=== PATIENT | female | born 1955 | race African-American/Black ===

== ENCOUNTER 2021-05-24 11:06 | Inpatient (IN) | payer OTHER ==
[~2021-05-24] VITALS: Ht 170.2 cm; Wt 119.9 kg
[2021-05-24 12:45] LABS: HEMATOCRIT. 41.1 % (36.0-48.0); HEMOGLOBIN. 13.6 g/dL (12.0-16.0); MEAN CORPUSCULAR HEMOGLOBIN 28.3 pg (28.0-32.0); MEAN CORPUSCULAR VOLUME 85.6 fL (81.0-99.0); RED CELL DISTRIBUTION WIDTH 14.4 % (11.6-14.6)
[2021-05-24 12:48] LABS: CHLORIDE 93 mEq/L (98-107)
[2021-05-24 12:52] LABS: ETHANOL BLOOD < 10 mg/dL
[2021-05-24 12:55] LABS: LDL CHOLESTEROL 57 mg/dL (5-100)
[2021-05-24 12:56] LABS: INR 1.2; PROTHROMBIN TIME 12.7 sec (9.6-11.0)
[2021-05-24 13:36] LABS: PLATELET ESTIMATE MARKEDLY DECREASED
[2021-05-24 13:37] LABS: PLATELET 37 x1000/uL (130-400)
[2021-05-24] MEDS ORDERED: IOHEXOL-350 100 ML BOTTLE ONE (13:38)
[2021-05-24] MEDS ORDERED: SODIUM CHLORIDE 0.9% 1,000 ML IV ONE ×2 (14:30→15:45)
[2021-05-24 14:32] LABS: BG BASE EXCESS -12.3 mmol/L (-2.0-2.0); BG CARBOXYHEMOGLOBIN 0.5 % (0.5-1.5); BG DEOXYHEMOGLOBIN 2.1 % (0.0-5.0); BG FRACTION INSPIRED OXYGEN 100; BG HCO3 ACT 13.5 mmol/L (22.0-26.0); BG METHEMOGLOBIN 0.5 % (0.0-1.5); BG OXYGEN SATURATION 97.9 % (92.0-98.5); BG OXYHEMOGLOBIN 96.9 % (94.0-97.0); BG PCO2 31.1 mmHg (35.0-45.0); BG PH 7.255 (7.350-7.450); BG PO2 130.7 mmHg (75.0-100.0); BG SAMPLE SITE LEFT BRACHIAL; BG TOTAL HEMOGLOBIN 13.7 g/dL (12.0-18.0); BG VENT MODE MASK - NRB
[2021-05-24 14:54] LABS: PHOSPHORUS 8.3 mg/dL (2.5-4.9)
[2021-05-24] MEDS ORDERED: CEFEPIME HCL 1000MG/VIAL INJ IM ONE (15:45)
[2021-05-24] MEDS ORDERED: VANCOMYCIN 1 G PREMIX 200 ML IV SCH (15:45)
[2021-05-24] MEDS ORDERED: CEFEPIME 1,000 MG in DEXTROSE 5% WATER 50 ML IV SCH (17:00)
[2021-05-24] MEDS ORDERED: LABETALOL HCL 20MG/4ML CARPUJECT IV ONE (17:45)
[2021-05-24] MEDS ORDERED: ONDANSETRON HCL 4MG/2ML INJ IV PRN (18:15)
[2021-05-24] MEDS ORDERED: MORPHINE SULFATE 2 MG/ML CPJ (NOT FOR IM USE) IV PRN (18:15)
[2021-05-24] MEDS ORDERED: DOCUSATE SODIUM 100MG CAPSULE PO PRN (18:15)
[2021-05-24] MEDS ORDERED: HYDROCODONE/ACETAMINOPHEN 5/325MG TABLET PO PRN (18:15)
[2021-05-24] MEDS ORDERED: ACETAMINOPHEN 325MG TABLET PO PRN (18:15)
[2021-05-24] MEDS ORDERED: CLONIDINE 0.1MG TABLET PO PRN (18:15)
[2021-05-24] MEDS ORDERED: HYDRALAZINE 20MG/ML VIAL IV PRN (18:15)
[2021-05-24] MEDS ORDERED: LORAZEPAM 2MG/ML CPJ IV PRN (18:15)
[2021-05-24] MEDS ORDERED: ENOXAPARIN 40MG/0.4ML SYR SUBCUT SCH (18:15)
[2021-05-24] MEDS ORDERED: DIPHENHYDRAMINE 50MG/ML VIAL IV PRN (18:15)
[2021-05-24] MEDS ORDERED: MAGNESIUM/ALUMINUM HYDROXIDE/SIMETHICONE 30ML UDC PO PRN (18:15)
[2021-05-24] MEDS ORDERED: GUAIFENESIN 200MG/10ML SUGAR FREE UDC PO PRN (18:15)
[2021-05-24] MEDS ORDERED: IPRATROPIUM/ALBUTEROL 0.5-3(2.5)MG/3ML NEB HHN PRN (18:15)
[2021-05-24 18:50] LABS: CLARITY URINE TURBID (CLEAR); COLOR URINE DARK YELLOW (YELLOW); KETONES URINE NEGATIVE (NEGATIVE); LEUKOCYTE ESTERASE URINE 1+ (NEGATIVE); NITRITE URINE POSITIVE (NEGATIVE); OCCULT BLOOD URINE 3+ (NEGATIVE); PROTEIN URINE 3+ (NEGATIVE); SPECIFIC GRAVITY URINE 1.032 (1.005-1.030)
[2021-05-24 19:03] LABS: *AMPHETAMINES SCREEN URINE NEGATIVE (NEGATIVE); *BARBITURATES SCREEN URINE NEGATIVE (NEGATIVE); *BENZODIAZEPINES SCREEN URINE NEGATIVE (NEGATIVE); *COCAINE SCREEN URINE NEGATIVE (NEGATIVE)
[2021-05-24 19:05] LABS: CANNABINOID URINE SCREEN NEGATIVE (NEGATIVE); METHADONE URINE SCREEN NEGATIVE (NEGATIVE); OPIATES URINE SCREEN NEGATIVE (NEGATIVE); PHENCYCLIDINE URINE SCREEN NEGATIVE (NEGATIVE)
[2021-05-24] MEDS: SODIUM CHLORIDE 0.9% INJ 3ML FLUSH IVF SCH (22:10)
[2021-05-25] VITALS (47 sets, daily range): BP systolic 53–179; BP diastolic 29–140
[2021-05-25] MEDS: NOREPINEPHRINE 8MG/250ML PMX 250ML IV PRN ×2 (05:07→11:46)
[2021-05-25] MEDS: SODIUM CHLORIDE 0.9% INJ 3ML FLUSH IVF SCH ×3 (06:00→22:00)
[2021-05-25 08:34] LABS: HEMATOCRIT. 41.6 % (36.0-48.0); HEMOGLOBIN. 13.6 g/dL (12.0-16.0); MEAN CORPUSCULAR HEMOGLOBIN 28.3 pg (28.0-32.0); MEAN CORPUSCULAR VOLUME 86.3 fL (81.0-99.0); RED BLOOD CELL COUNT 4.82 mill/uL (4.2-5.4); RED CELL DISTRIBUTION WIDTH 14.9 % (11.6-14.6)
[2021-05-25 08:41] LABS: CHLORIDE 96 mEq/L (98-107)
[2021-05-25] MEDS ORDERED: LORAZEPAM 2MG/ML CPJ IV ONE (09:00)
[2021-05-25 09:17] LABS: BG BASE EXCESS -11.5 mmol/L (-2.0-2.0); BG CARBOXYHEMOGLOBIN 0.6 % (0.5-1.5); BG DEOXYHEMOGLOBIN 3.5 % (0.0-5.0); BG METHEMOGLOBIN 0.3 % (0.0-1.5); BG OXYGEN SATURATION 96.5 % (92.0-98.5); BG OXYHEMOGLOBIN 95.6 % (94.0-97.0); BG PCO2 26.6 mmHg (35.0-45.0); BG PH 7.306 (7.350-7.450); BG PO2 94.7 mmHg (75.0-100.0); BG SAMPLE SITE RIGHT RADIAL; BG TOTAL HEMOGLOBIN 14.6 g/dL (12.0-18.0); BG VENT MODE NASAL CANNULA
[2021-05-25] MEDS ORDERED: SODIUM BICARBONATE 8.4% 1 MEQ/ML 50ML SYR IV SCH (10:00)
[2021-05-25] MEDS ORDERED: ALBUTEROL (0.083%) 2.5MG/3ML NEB HHN ONE (10:00)
[2021-05-25] MEDS ORDERED: MIDAZOLAM 100MG/100ML PMX 100 ML IV PRN (10:00)
[2021-05-25] MEDS ORDERED: PIPERACILLIN/TAZ 3.375G PREMIX 50 ML IV SCH (10:00)
[2021-05-25] MEDS ORDERED: PIPERACILLIN/TAZOBACTAM 3.375 G in DEXTROSE 5% WATER 50 ML IV SCH (10:00)
[2021-05-25] MEDS ORDERED: SODIUM BICARBONATE 8.4% 1 MEQ/ML 50ML SYR IV ONE (10:00)
[2021-05-25] MEDS ORDERED: MIDAZOLAM HCL 100 MG in SODIUM CHLORIDE 0.9% 100 ML IV PRN (10:00)
[2021-05-25] MEDS ORDERED: SODIUM POLYSTYRENE SULFONATE 15 G/60 ML BOT NG ONE (10:00)
[2021-05-25 10:14] LABS: PLATELET ESTIMATE MARKEDLY DECREASED
[2021-05-25 10:17] LABS: PLATELET 23 x1000/uL (130-400)
[2021-05-25] MEDS ORDERED: LIDOCAINE HCL 1% 30ML VIAL (10MG/ML) ONE (10:23)
[2021-05-25] MEDS ORDERED: HEPARIN 1000 UNITS/ML 10ML ONE (10:23)
[2021-05-25] MEDS ORDERED: CEFEPIME 1,000 MG in DEXTROSE 5% WATER 50 ML IV SCH (10:30)
[2021-05-25] MEDS ORDERED: PANTOPRAZOLE SODIUM 40 MG/VIAL IV SCH (10:45)
[2021-05-25] MEDS ORDERED: CEFEPIME IV SCH (11:00)
[2021-05-25] MEDS ORDERED: DEXTROSE 5% IV SCH (11:00)
[2021-05-25] MEDS ORDERED: WATER IV SCH (11:00)
[2021-05-25] MEDS ORDERED: METRONIDAZOLE 500 MG PREMIX 100 ML IV SCH (11:00)
[2021-05-25] MEDS ORDERED: LEVETIRACETAM 500 MG in SODIUM CHLORIDE 0.9% 100 ML IV SCH (11:00)
[2021-05-25] MEDS ORDERED: LEVETIRACETAM 500MG PREMIX 100 ML IV SCH (11:30)
[2021-05-25] MEDS: CEFEPIME 1,000 MG in DEXTROSE 5% WATER 50 ML IV SCH (11:36)
[2021-05-25 11:57] LABS: BG BASE EXCESS -10.6 mmol/L (-2.0-2.0); BG CARBOXYHEMOGLOBIN 0.5 % (0.5-1.5); BG DEOXYHEMOGLOBIN 0.8 % (0.0-5.0); BG FRACTION INSPIRED OXYGEN 100; BG HCO3 ACT 14.1 mmol/L (22.0-26.0); BG METHEMOGLOBIN 0.6 % (0.0-1.5); BG OXYGEN SATURATION 99.2 % (92.0-98.5); BG OXYHEMOGLOBIN 98.1 % (94.0-97.0); BG PCO2 28.5 mmHg (35.0-45.0); BG PH 7.312 (7.350-7.450); BG SAMPLE SITE RIGHT RADIAL; BG TOTAL HEMOGLOBIN 13.7 g/dL (12.0-18.0); BG VENT MODE VENT - AC
[2021-05-25] MEDS: IPRATROPIUM/ALBUTEROL 0.5-3(2.5)MG/3ML NEB HHN SCH ×2 (12:30→21:14)
[2021-05-25] MEDS ORDERED: MANNITOL 12.5G (25%) VIAL 50ML IV NR (13:30)
[2021-05-25] MEDS ORDERED: NALOXONE HCL 0.4MG/ML VIAL IV PRN (13:45)
[2021-05-25] MEDS ORDERED: NOREPINEPHRINE 8 MG in DEXTROSE 5% WATER 250 ML IV PRN (14:30)
[2021-05-25] MEDS: LACTULOSE 20G/30ML UDC PO SCH ×2 (15:47→22:54)
[2021-05-25 17:19] LABS: T4 FREE 0.78 ng/dL (0.76-1.46)
[2021-05-25] MEDS: PHENYLEPHRINE 100 MG in DEXT 5% WATER 240 ML IV PRN ×2 (17:30→23:30)
[2021-05-25] MEDS: NOREPINEPHRINE 32 MG in DEXT 5% WATER 218 ML IV PRN ×2 (17:31→23:15)
[2021-05-25] MEDS ORDERED: VASOPRESSIN 20 UNIT in SODIUM CHLORIDE 0.9% 99 ML IV PRN (18:15)
[2021-05-25 18:24] LABS: D-DIMER 23.9 mg/L FEU (<0.50); INR 1.1
[2021-05-25 18:49] LABS: HEPATITIS B SURFACE ANTIGEN NEGATIVE
[2021-05-25] MEDS: LEVETIRACETAM 500MG PREMIX 100 ML IV SCH (20:09)
[2021-05-25] MEDS ORDERED: VANCOMYCIN 500 MG PREMIX 100 ML IV NR (21:00)
[2021-05-25] MEDS: METRONIDAZOLE 500 MG PREMIX 100 ML IV SCH (23:16)
[2021-05-25] MEDS: FENTANYL CITRATE/PF 2,500 MCG in SODIUM CHLORIDE 0.9% 200 ML IV PRN (23:35)
[2021-05-26] VITALS (95 sets, daily range): BP systolic 47–255; BP diastolic 18–159
[2021-05-26] MEDS: IPRATROPIUM/ALBUTEROL 0.5-3(2.5)MG/3ML NEB HHN SCH ×4 (01:02→20:39)
[2021-05-26] MEDS: PHENYLEPHRINE 100 MG in DEXT 5% WATER 240 ML IV PRN ×3 (02:13→18:29)
[2021-05-26 05:43] LABS: BG BASE EXCESS -11.4 mmol/L (-2.0-2.0); BG CARBOXYHEMOGLOBIN 0.6 % (0.5-1.5); BG DEOXYHEMOGLOBIN 6.5 % (0.0-5.0); BG FRACTION INSPIRED OXYGEN 80; BG HCO3 ACT 13.7 mmol/L (22.0-26.0); BG METHEMOGLOBIN 0.5 % (0.0-1.5); BG OXYGEN SATURATION 93.4 % (92.0-98.5); BG OXYHEMOGLOBIN 92.4 % (94.0-97.0); BG PCO2 29.1 mmHg (35.0-45.0); BG SAMPLE SITE LEFT RADIAL; BG TOTAL HEMOGLOBIN 13.7 g/dL (12.0-18.0); BG VENT MODE VENT - AC
[2021-05-26] MEDS: LACTULOSE 20G/30ML UDC PO SCH ×2 (05:49→13:51)
[2021-05-26] MEDS: SODIUM CHLORIDE 0.9% INJ 3ML FLUSH IVF SCH ×2 (05:50→13:52)
[2021-05-26 06:31] LABS: HEMATOCRIT. 40.8 % (36.0-48.0); HEMOGLOBIN. 12.9 g/dL (12.0-16.0); MEAN CORPUSCULAR HEMOGLOBIN 28.2 pg (28.0-32.0); MEAN CORPUSCULAR VOLUME 88.7 fL (81.0-99.0); RED CELL DISTRIBUTION WIDTH 15.4 % (11.6-14.6)
[2021-05-26 07:01] LABS: CREATINE KINASE MB FRACTION 80.2 ng/mL (0.5-3.6)
[2021-05-26 07:03] LABS: NUCLEATED RED BLOOD CELLS 1 /100 WBC
[2021-05-26 07:05] LABS: PLATELET ESTIMATE MARKEDLY DECREASED
[2021-05-26 07:08] LABS: MEAN PLATELET VOLUME 11.6 fl (7.4-10.4)
[2021-05-26 07:09] LABS: PLATELET 35 x1000/uL (130-400)
[2021-05-26] MEDS ORDERED: INSULIN REGULAR (HUMULIN R) 300UNITS/3ML VIAL IV SCH (07:45)
[2021-05-26] MEDS ORDERED: DEXTROSE 50% WATER 50ML SYRINGE IV SCH (07:45)
[2021-05-26] MEDS ORDERED: CALCIUM CHLORIDE 1GM/10ML SYR IV SCH (07:45)
[2021-05-26] MEDS ORDERED: SODIUM BICARBONATE 8.4% 1 MEQ/ML 50ML SYR IV SCH (07:45)
[2021-05-26] MEDS ORDERED: SODIUM BICARBONATE 150 MEQ in DEXTROSE 5% WATER 1,000 ML IV SCH (09:00)
[2021-05-26] MEDS ORDERED: CALCIUM CHLORIDE 1GM/10ML SYR IV ONE (09:02)
[2021-05-26] MEDS ORDERED: DEXTROSE 50% WATER 50ML SYRINGE IV ONE (09:02)
[2021-05-26] MEDS ORDERED: EPINEPHRINE 0.1MG/ML (1:10,000) 10ML SYR ONE (09:02)
[2021-05-26] MEDS ORDERED: SODIUM BICARBONATE 8.4% 1 MEQ/ML 50ML SYR IV ONE (09:02)
[2021-05-26] MEDS ORDERED: LIDOCAINE HCL 1% 30ML VIAL (10MG/ML) ONE (09:13)
[2021-05-26] MEDS: PANTOPRAZOLE SODIUM 40 MG/VIAL IV SCH ×2 (09:32→20:51)
[2021-05-26] MEDS: METRONIDAZOLE 500 MG PREMIX 100 ML IV SCH (09:32)
[2021-05-26] MEDS: LEVETIRACETAM 500MG PREMIX 100 ML IV SCH ×2 (09:32→20:51)
[2021-05-26 10:41] LABS: BG BASE EXCESS -23.1 mmol/L (-2.0-2.0); BG CARBOXYHEMOGLOBIN 0.5 % (0.5-1.5); BG FRACTION INSPIRED OXYGEN 60; BG HCO3 ACT 5.4 mmol/L (22.0-26.0); BG METHEMOGLOBIN 0.3 % (0.0-1.5); BG OXYHEMOGLOBIN 97.2 % (94.0-97.0); BG PCO2 19.5 mmHg (35.0-45.0); BG PH 7.061 (7.350-7.450); BG PO2 133.7 mmHg (75.0-100.0); BG SAMPLE SITE RIGHT RADIAL; BG TOTAL HEMOGLOBIN 12.2 g/dL (12.0-18.0); BG VENT MODE VENT - AC
[2021-05-26] MEDS ORDERED: EPINEPHRINE 10 MG in SODIUM CHLORIDE 0.9% 240 ML IV PRN (10:45)
[2021-05-26] MEDS ORDERED: SODIUM BICARBONATE 8.4% 1 MEQ/ML 50ML SYR IV NR ×2 (10:45→17:15)
[2021-05-26] MEDS: NOREPINEPHRINE 32 MG in DEXT 5% WATER 218 ML IV PRN (11:07)
[2021-05-26] MEDS: FENTANYL CITRATE/PF 2,500 MCG in SODIUM CHLORIDE 0.9% 200 ML IV PRN (13:05)
[2021-05-26] MEDS: CEFEPIME 1,000 MG in DEXTROSE 5% WATER 50 ML IV SCH (13:51)
[2021-05-26] MEDS ORDERED: DEXTROSE 50% WATER 50ML SYRINGE IV PRN (17:00)
[2021-05-26] MEDS ORDERED: VANCOMYCIN 500 MG PREMIX 100 ML IV NR (17:00)
[2021-05-26] MEDS ORDERED: SODIUM POLYSTYRENE SULFONATE 15 G/60 ML BOT PO NR (17:15)
[2021-05-26] MEDS ORDERED: CALCIUM CHLORIDE 1GM/10ML SYR IV NR (17:15)
[2021-05-26] MEDS ORDERED: DEXTROSE 50% WATER 50ML SYRINGE IV NR (17:15)
[2021-05-26 18:02] LABS: BG BASE EXCESS -14.8 mmol/L (-2.0-2.0); BG CARBOXYHEMOGLOBIN 0.4 % (0.5-1.5); BG DEOXYHEMOGLOBIN 0.8 % (0.0-5.0); BG FRACTION INSPIRED OXYGEN 100; BG HCO3 ACT 11.8 mmol/L (22.0-26.0); BG METHEMOGLOBIN 0.6 % (0.0-1.5); BG OXYGEN SATURATION 99.2 % (92.0-98.5); BG OXYHEMOGLOBIN 98.2 % (94.0-97.0); BG PCO2 30.5 mmHg (35.0-45.0); BG PH 7.206 (7.350-7.450); BG PO2 356.8 mmHg (75.0-100.0); BG SAMPLE SITE LEFT RADIAL; BG TOTAL HEMOGLOBIN 7.3 g/dL (12.0-18.0); BG VENT MODE VENT - AC
[2021-05-26] MEDS ORDERED: SODIUM BICARBONATE 150 MEQ in DEXT 10% WATER 1,000 ML IV SCH (20:00)
[2021-05-29 09:37] LABS: BG SAMPLE SITE Left Radical; BG TIDAL VOLUME(mL) 500 mL; BG VENT MODE VENT-AC; BG VENT RATE 28 set
[2021-05-29 09:38] LABS: BG FRACTION INSPIRED OXYGEN 80
[2021-05-29 09:39] LABS: BG PCO2 29.1 mmHg (35.0-45.0)
[2021-05-29 09:40] LABS: BG BASE EXCESS -11.4 mmol/L (-2.0-2.0); BG HCO3 ACT 13.7 mmol/L (22.0-26.0); BG OXYGEN SATURATION 93.4 % (92.0-98.5); BG OXYHEMOGLOBIN 92.4 % (94.0-97.0); BG TOTAL HEMOGLOBIN 13.7 g/dL (12.0-18.0)
[2021-05-29 09:41] LABS: BG CARBOXYHEMOGLOBIN 0.6 % (0.5-1.5); BG DEOXYHEMOGLOBIN 6.5 % (0.0-5.0); BG METHEMOGLOBIN 0.5 % (0.0-1.5)
== END 2021-05-26 21:50 | DRG 871 ==
LOC: ER 11:06 → MICUSO 16:40 → EDBEDREQ 16:45 → EDBEDREQTM 16:45 → MICUSO 05-25 13:38
PROVIDERS: ADMIT Internal Medicine; ATTEND Internal Medicine
PROC: 05HY33Z Insertion of Infusion Device into Upper Vein, Percutaneous Approach (ICD-10-PCS; 2021-05-25)
PROC: B54MZZA Ultrasonography of Right Upper Extremity Veins, Guidance (ICD-10-PCS; 2021-05-25)
PROC: 0BH17EZ Insertion of Endotracheal Airway into Trachea, Via Natural or Artificial Opening (ICD-10-PCS; 2021-05-25)
PROC: 5A1945Z Respiratory Ventilation, 24-96 Consecutive Hours (ICD-10-PCS; 2021-05-25)
PROC: 5A1D70Z Performance of Urinary Filtration, Intermittent, Less than 6 Hours Per Day (ICD-10-PCS; 2021-05-25)
PROC: 5A12012 Performance of Cardiac Output, Single, Manual (ICD-10-PCS; principal; 2021-05-26)
PROC: 02HV33Z Insertion of Infusion Device into Superior Vena Cava, Percutaneous Approach (ICD-10-PCS; 2021-05-26)
PROC: B548ZZA Ultrasonography of Superior Vena Cava, Guidance (ICD-10-PCS; 2021-05-26)
DX: A41.9 Sepsis, unspecified organism (principal); I21.4 Non-ST elevation (NSTEMI) myocardial infarction; J96.00 Acute respiratory failure, unspecified whether with hypoxia or hypercapnia; J15.1 Pneumonia due to Pseudomonas; I63.81 Other cerebral infarction due to occlusion or stenosis of small artery; R65.21 Severe sepsis with septic shock; N17.0 Acute kidney failure with tubular necrosis; E44.0 Moderate protein-calorie malnutrition; E87.1 Hypo-osmolality and hyponatremia; N39.0 Urinary tract infection, site not specified; K92.2 Gastrointestinal hemorrhage, unspecified; M62.82 Rhabdomyolysis; Z68.41 Body mass index [BMI] 40.0-44.9, adult; G93.40 Encephalopathy, unspecified; D69.6 Thrombocytopenia, unspecified; E03.9 Hypothyroidism, unspecified; E11.65 Type 2 diabetes mellitus with hyperglycemia; E66.9 Obesity, unspecified; E87.5 Hyperkalemia; E86.0 Dehydration; E11.22 Type 2 diabetes mellitus with diabetic chronic kidney disease; N18.9 Chronic kidney disease, unspecified; I12.9 Hypertensive chronic kidney disease with stage 1 through stage 4 chronic kidney disease, or unspecified chronic kidney disease; I46.9 Cardiac arrest, cause unspecified; K72.90 Hepatic failure, unspecified without coma; Z20.822 Contact with and (suspected) exposure to COVID-19; K76.0 Fatty (change of) liver, not elsewhere classified; E78.5 Hyperlipidemia, unspecified; R56.9 Unspecified convulsions; Z79.899 Other long term (current) drug therapy
CPT/HCPCS: 36415; 36556; 36600; 70496; 70498; 71045; 76770; 76937; 80048; 80053; 80061; 80305; 80307; 80320; 80329; 81003; 82140; 82375; 82550; 82553; 82570; 82805; 82962; 83036; 83605; 83721; 83735; 83880; 84100; 84132; 84300; 84439; 84443; 84484; 85025; 85362; 85379; 85384; 86705; 86709; 86803; 86850; 86900; 87070; 87077; 87186; 87340; 87426; 93005; 93306; 93970; 94002; 94003; 94640; 99291; C1725; C1752; C9113; J0360; J0692; J1644; J1815; J1953; J2060; J2150; J2250; J2270; J2370; J2405; J2543; J3010; J3370; J3490; J7030; J7040; J7050; J7060; J7070; Q9967; G0480